=== PATIENT | male | born 1965 | race Caucasian/White ===

== ENCOUNTER 2018-12-15 20:39 | Inpatient (IN) | payer SELFPAY ==
[2018-12-15] MEDS ORDERED: LORazepam 2 MG/ML VIAL ONE (21:08)
[2018-12-15] MEDS ORDERED: NA CHLORIDE 0.9% 2,000 ML ONE (21:08)
--- NOTE | 2018-12-15 21:08 | RAD REPORT ---
EXAM DESCRIPTION: Zoë Single View12/15/2018 8:55 pm CLINICAL HISTORY: sob COMPARISON: 2017 FINDINGS: The lungs appear clear of acute infiltrate. The heart is normal size IMPRESSION: No acute abnormalities displayed
[2018-12-15 21:10] LABS: Absolute Lymphocytes (CBC) 1.9 K/uL (0.7-4.9); Basophils % 0.7 % (0-1.3); Hematocrit 42.5 % (39.6-49.0); Lymphocytes % 37.3 % (15.3-44.8); RBC Red Blood Cell Count 4.31 M/uL (4.33-5.43)
[2018-12-15 21:13] LABS: Protime INR 0.99
[2018-12-15 21:26] LABS: ALT/SGPT 136 U/L (12-78); AST/SGOT 141 U/L (15-37); Albumin 3.8 g/dL (3.4-5.0); Alkaline Phosphatase 99 U/L (45-117); BUN Blood Urea Nitrogen 12 mg/dL (7-18); Bicarbonate 22 mmol/L (21-32); Bilirubin Direct 0.2 mg/dL (0-0.2); Bilirubin Total 0.5 mg/dL (0.2-1.0); Glucose Level 86 mg/dL (74-106); Potassium 3.4 mmol/L (3.5-5.1); Protein, Total 7.7 g/dL (6.4-8.2); Sodium Level 139 mmol/L (136-145)
[2018-12-15] MEDS ORDERED: MAGNESIUM SULFATE 1 gm IVPB 1 GM/100 ML BAG IV ONE (21:31)
[2018-12-15 21:46] LABS: Urine Blood NEGATIVE (NEG); Urine Glucose NEGATIVE (NEG); Urine Protein NEGATIVE (NEG); Urine Specific Gravity <1.005 (1.005-1.030)
[2018-12-15 22:04] LABS: Barbiturates NEGATIVE (NEGATIVE); Benzodiazepines NEGATIVE (NEGATIVE); Cocaine NEGATIVE (NEGATIVE); METHAMPHETAM NEGATIVE (NEGATIVE); Methadone NEGATIVE (NEGATIVE); Opiates NEGATIVE (NEGATIVE); Phencyclidine NEGATIVE (NEGATIVE); THC Cannibis NEGATIVE (NEGATIVE)
[2018-12-15] MEDS ORDERED: POTASSIUM CL SA 10 MEQ TAB PO ONE ×2 (22:16→22:25)
[2018-12-15] MEDS ORDERED: FAMOTIDINE 20 MG/2 ML VIAL IV ONE (22:30)
[2018-12-15] MEDS ORDERED: ONDANSETRON 4 MG/2 ML VIAL ONE (22:30)
[2018-12-15] MEDS ORDERED: CALCIUM GLUCONATE 1 GM IVPB 1 GM/50 ML BAG IV ONE (22:32)
--- NOTE | 2018-12-15 23:22 | ER ---
Nurse's Notes [facility] Name: Vinny Posadas Age: 52 yrs Sex: Male : 1965 Arrival Date: 12/15/2018 Time: 20:44 Bed 6 Private MD: Diagnosis: Suicidal ideations;Anti-depressant overdose;Prolonged QT Presentation: 12/15 20:40 Presenting complaint: EMS states: that they were toned for overdose of Trazodone 50 mg fc (30 tablets), Sertraline 50 mg ( 15 tablets) , and Methocarbamol 750 mg ( 4 tablets). Pt called 911 and they contacted EMS. Pt also told them he had 6 shots prior to taking medication. Pt is awake on and off and complaining of abd pain on and off. Upon entering ER room pt stating that he did not want to be here anymore and could not believe that he was. Transition of care: patient was not received from another setting of care. Onset of symptoms was December 15, 2018 at 19:00. Risk Assessment: Do you want to hurt yourself or someone else? Patient reports desire/thoughts of hurting themselves or someone else. Provider notified. Initial Sepsis Screen: Does the patient meet any 2 criteria? HR > 90 bpm. Yes Does the patient have a suspected source of infection? No. Patient's initial sepsis screen is negative. Care prior to arrival: IV initiated. They had 20 gauge to right forearm that pt pulled out upon entering er room. 20:40 Method Of Arrival: EMS: [facility] 20:40 Acuity: TRAE 2 fc Triage Assessment: 21:18 General: Appears in no apparent distress. Behavior is calm. Pain: Denies pain. EENT: No ak1 signs and/or symptoms were reported regarding the EENT system. Neuro: Level of Consciousness is awake, alert, obeys commands, lethargic, Oriented to person, place, time, situation, Insulation Board Coater Operator are equal bilaterally Moves all extremities. Gait is unsteady, Speech is slurred. Cardiovascular: No deficits noted. Respiratory: No deficits noted. GI: No signs and/or symptoms were reported involving the gastrointestinal system. : Reports inability to void. Derm: No signs and/or symptoms reported regarding the dermatologic system. Musculoskeletal: No signs and/or symptoms reported regarding the musculoskeletal system. Historical: - Allergies: 20:56 No Known Allergies; fc - Home Meds: 20:56 None [Active]; fc - PMHx: 20:56 Depression; Chronic pain; fc - Immunization history:: Last tetanus immunization: unknown. - Social history:: Smoking status: Patient uses tobacco products, unknown amount Patient uses alcohol, unknown amt. - Family history:: not pertinent. - Ebola Screening: : Patient negative for fever greater than or equal to 101.5 degrees Fahrenheit, and additional compatible Ebola Virus Disease symptoms Patient denies exposure to infectious person Patient denies travel to an Ebola-affected area in the 21 days before illness onset. - Hospitalizations: : No recent hospitalization is reported. Screenin:40 Nutritional screening: No deficits noted. Tuberculosis screening: No symptoms or risk fc factors identified. Fall Risk None identified. 21:18 Abuse screen: Denies threats or abuse. Denies injuries from another. ak1 Assessment: 21:11 Reassessment: spoke with Claritza with [facility] who recommend we monitor fc for Serotonin Syndrome, Obtain initial labs, ekg, place on tele monitor, seizure precautions, hypothermia, hypertension. Due to pt being in and out hold Charcoal. Given Mag Sulfate IV 1 gram over an hr for prolonged QTc and then repeat EKG 1 hr after completion of Mag. Dr Diaz notified. 21:50 General: Appears in no apparent distress. comfortable, Behavior is calm, cooperative. ak1 Pain: Denies pain. Neuro: Level of Consciousness is awake, alert, obeys commands, lethargic, Oriented to person, place, Insulation Board Coater Operator are equal bilaterally Moves all extremities. Gait is unsteady, Speech is slurred. Cardiovascular: No deficits noted. Respiratory: No deficits noted. GI: No signs and/or symptoms were reported involving the gastrointestinal system. : No signs and/or symptoms were reported regarding the genitourinary system. EENT: No signs and/or symptoms were reported regarding the EENT system. Derm: No signs and/or symptoms reported regarding the dermatologic system. Musculoskeletal: No signs and/or symptoms reported regarding the musculoskeletal system. 22:25 Reassessment: Patient appears in no apparent distress at this time. No changes from ak1 previously documented assessment. Patient and/or family updated on plan of care and expected duration. Pain level reassessed. Patient is alert, oriented x 3, equal unlabored respirations, skin warm/dry/pink. pt resting with eyes closed, resp even and unlabored. Patient denies pain at this time. Patient states feeling better. 12/16 00:05 Reassessment: Patient appears in no apparent distress at this time. Patient and/or ak1 family updated on plan of care and expected duration. Pain level reassessed. pt resting with eyes closed, resp even and unlabored. Dr. Hansen at bedside to explain to pt admission status. 02:09 Reassessment: poison control recommends and additional 1 gram of mag due to QT interval ak1 not below 450ms. Dr. Hansen contacted with verbal order to administer 1 gram mag. with EKG to follow 1 hour after infusion is complete. Psych: 12/15 20:58 Subjective: Patient's mood is sad, irritable, hopeless, Delusions are denied, fc Hallucinations are denied Having thoughts of suicide. Plan for suicide is overdosing on medication. Objective: Patient is uncooperative, defensive, guarded, irritable, using poor eye contact, restless, suspicious, Speech is slow, Affect is flat, inappropriate. Interventions: Removed personal items and placed in bag. Patient placed in hospital gown. Searched person for dangerous items. Suicide Risk Assessment: Sad Person Scale: Sex of patient: Male: Score 1 point. Age of patient: Score 0 point if patient falls outside of specified age parameters. Depression: Score 1 point if signs of depression are present. Previous Attempt: Score 0 point if patient has not previously attempted suicide. Substance Abuse: Score 0 point if patient does not abuse alcohol or drugs. Rational Thinking: Score 0 point if patient has rational thinking. Social Support: Score 0 if social support is present/available. Organized Plan: Score 1 point if patient had a plan in place. Relationship: Score 1 point if patient is , , , or for a single male Chronic Sickness: Score 0 point if patient does not have a chronic illness, debilitating, or severe disorder. TOTAL POINTS: If total points are 3-4, proposed clinical action is close follow-up/consider hospitalization. Safety Checks: Personal items have been removed. Door is open. No visitors are present at this time. Patient uses 6 shots of liquor, unknown Last use was 1800 hours ago. Vital Signs: 20:40 BP 156 / 126; Pulse 110; Resp 16; Temp 98.0(O); Pulse Ox 97% on R/A; Weight 74.84 kg fc (R); Height 6 ft. 0 in. (182.88 cm) (R); Pain 0/10; 21:18 BP 118 / 82; Pulse 76; Resp 14; Temp 98; Pulse Ox 94% on R/A; ak1 22:27 BP 138 / 88; Pulse 72; Resp 16; Pulse Ox 100% on R/A; ak1 12/16 00:00 BP 94 / 61; Pulse 64; Resp 16; Pulse Ox 96% on R/A; lc1 03:47 BP 107 / 70; Pulse 60; Resp 12; Temp 98; Pulse Ox 96% on R/A; ak1 12/15 20:40 Body Mass Index 22.38 (74.84 kg, 182.88 cm) ED Course: 12/15 20:40 No provider procedures requiring assistance completed. fc 20:40 Arm band placed on Patient placed in an exam room, on a stretcher. fc 20:40 Patient has correct armband on for positive identification. Placed in gown. Bed in low fc position. Call light in reach. Side rails up X2. residential monitor on. Pulse ox on. NIBP on. 20:44 Patient arrived in ED. rn 20:44 Brody iDaz MD is Attending Physician. rn 20:45 Safety Checks: Personal items have been removed. The door is open or patient has been ak1 placed in a hallway bed/chair. There are no family/friend visitors at this time Sitter present at this time. 20:47 Dolores Valencia, RN is Primary Nurse. ak1 20:47 Inserted saline lock: 20 gauge in right forearm, using aseptic technique. Blood ak1 collected. 20:47 EKG done, by ED staff, reviewed by Brody Diaz MD. fc 20:54 Triage completed. fc 20:57 XRAY Chest (1 view) In Process Unspecified. EDMS 21:00 Safety Checks: Personal items have been removed. The door is open or patient has been ak1 placed in a hallway bed/chair. There are no family/friend visitors at this time Sitter present at this time. 21:15 Safety Checks: Personal items have been removed. The door is open or patient has been ak1 placed in a hallway bed/chair. There are no family/friend visitors at this time Sitter present at this time. 21:30 Safety Checks: Personal items have been removed. The door is open or patient has been ak1 placed in a hallway bed/chair. There are no family/friend visitors at this time Sitter present at this time. 21:34 Straight cath inserted, using sterile technique, 16 Fr. Specimen obtained. Patient ak1 tolerated well. 21:45 Safety Checks: Personal items have been removed. The door is open or patient has been ak1 placed in a hallway bed/chair. There are no family/friend visitors at this time Sitter present at this time. 21:50 Lights dimmed. Warm blanket given. ak1 22:00 Safety Checks: Personal items have been removed. The door is open or patient has been lc1 placed in a hallway bed/chair. There are no family/friend visitors at this time Sitter present at this time. 22:15 Safety Checks: Personal items have been removed. The door is open or patient has been lc1 placed in a hallway bed/chair. There are no family/friend visitors at this time Sitter present at this time. 22:30 Safety Checks: Personal items have been removed. The door is open or patient has been lc1 placed in a hallway bed/chair. There are no family/friend visitors at this time Sitter present at this time. 22:45 Safety Checks: Personal items have been removed. The door is open or patient has been lc1 placed in a hallway bed/chair. There are no family/friend visitors at this time Sitter present at this time. 23:00 Safety Checks: Personal items have been removed. The door is open or patient has been lc1 placed in a hallway bed/chair. There are no family/friend visitors at this time Sitter present at this time. 23:13 Assisted to bedside commode. ak1 23:15 Safety Checks: Personal items have been removed. The door is open or patient has been lc1 placed in a hallway bed/chair. There are no family/friend visitors at this time Sitter present at this time. 23:20 Aldair Love DO is Hospitalizing Provider. rn 23:30 Safety Checks: Personal items have been removed. The door is open or patient has been lc1 placed in a hallway bed/chair. There are no family/friend visitors at this time Sitter present at this time. 23:45 Safety Checks: Personal items have been removed. The door is open or patient has been lc1 placed in a hallway bed/chair. There are no family/friend visitors at this time Sitter present at this time. 12/16 00:00 Safety Checks: Personal items have been removed. The door is open or patient has been lc1 placed in a hallway bed/chair. There are no family/friend visitors at this time Sitter present at this time. 00:15 Safety Checks: Personal items have been removed. The door is open or patient has been lc1 placed in a hallway bed/chair. There are no family/friend visitors at this time Sitter present at this time. 00:30 Safety Checks: Personal items have been removed. The door is open or patient has been lc1 placed in a hallway bed/chair. There are no family/friend visitors at this time Sitter present at this time. 00:45 Safety Checks: Personal items have been removed. The door is open or patient has been lc1 placed in a hallway bed/chair. There are no family/friend visitors at this time Sitter present at this time. 01:00 Safety Checks: Personal items have been removed. The door is open or patient has been lc1 placed in a hallway bed/chair. There are no family/friend visitors at this time Sitter present at this time. 04:24 Patient admitted, IV remains in place. ak1 Administered Medications: 12/15 21:00 Drug: NS 0.9% 1000 ml Route: IV; Rate: 1000 ml; Site: right forearm; ak1 22:15 Follow up: IV Status: Completed infusion; IV Intake: 1000ml ak1 21:00 Drug: Ativan 1 mg Route: IVP; Site: right forearm; ak1 21:17 Follow up: Response: No adverse reaction ak1 21:01 Drug: NS 0.9% 1000 ml Route: IV; Rate: 1000 ml; Site: right forearm; ak1 23:25 Follow up: IV Status: Completed infusion; IV Intake: 1000ml ak1 21:17 Drug: Magnesium Sulfate 1 grams Route: IVPB; Infused Over: 1 hrs; Site: right forearm; ak1 22:15 Follow up: IV Status: Completed infusion; IV Intake: 100ml ak1 21:18 Not Given (pt drowsy, verb order from ERP to cancel): Charcoal Suspension 50 grams PO ak1 once 22:10 Not Given (Other Intervention Used): Potassium Chloride 10 mEq IV at 1 calculated rate ak1 once; administer over 1-2 hours 22:11 Drug: Potassium Chloride 20 mEq Route: PO; ak1 22:24 Follow up: Response: No adverse reaction ak1 22:17 Drug: Zofran 4 mg Route: IVP; Site: right forearm; ak1 22:24 Follow up: Response: No adverse reaction ak1 22:17 Drug: Pepcid 20 mg Route: IVP; Site: right forearm; ak1 22:25 Follow up: Response: No adverse reaction ak1 22:24 Drug: Calcium Gluconate 1 grams Route: IVPB; Infused Over: 60 mins; Site: right forearm;ak1 23:25 Follow up: IV Status: Completed infusion; IV Intake: 100ml ak1 12/16 02:12 Follow up: IV Status: Completed infusion; IV Intake: 100ml ak1 02:18 Drug: Magnesium Sulfate 1 grams Route: IVPB; Infused Over: 1 hrs; Site: right forearm; ak1 03:17 Follow up: IV Status: Completed infusion; IV Intake: 100ml ak1 Point of Care Testing: Blood Glucose: 12/15 20:44 Blood Glucose: 78 mg/dL; cc3 Ranges: Intake: 22:15 IV: 1000ml; Total: 1000ml. ak1 22:15 IV: 100ml; Total: 1100ml. ak1 23:25 IV: 100ml; Total: 1200ml. ak1 23:25 IV: 1000ml; Total: 2200ml. ak1 12/16 02:12 IV: 100ml; Total: 2300ml. ak1 03:17 IV: 100ml; Total: 2400ml. ak1 Output: 12/15 23:13 Stool: 1 (Formed Stool) ; Total: 0ml. lc1 23:32 Urine: 750ml (Voided); Total: 750ml. lc1 Outcome: 23:21 Decision to Hospitalize by Provider. rn 12/16 04:24 Admitted to ER Hold. Please see [facility] for further documentation. ak1 04:24 Condition: stable ak1 07:56 Patient left the ED. aa5 Signatures: Dispatcher [employer] EDMS Denise Vasquez RN RN Brody Diaz MD MD rn Calderon, Audri, RN RN aa5 Rina Jhaveri lc1 Dolores Valencia RN RN ak1 Janice Jimenez cc3 Corrections: (The following items were deleted from the chart) 12/15 20:58 20:40 Presenting complaint: EMS states: that they were toned for overdose of Trazodone fc 50 mg (30 tablets), Sertraline 50 mg ( 15 tablets) , and Methocarbamol 750 mg ( 4 tablets). Pt also told them he had 6 shots prior to taking medication. Pt is awake on and off and complaining of abd pain on and off. 22:43 22:30 Safety Checks: Personal items have been removed. The door is open or patient has lc1 been placed in a hallway bed/chair. There are no family/friend visitors at this time Sitter present at this time. lc1
--- NOTE | 2018-12-15 23:22 | EDPHYS ---
Physician Documentation [facility] Name: Vinny Posadas Age: 52 yrs Sex: Male : 1965 Arrival Date: 12/15/2018 Time: 20:44 Bed 6 Private MD: ED Physician Brody Diaz HPI: 12/15 20:46 This 52 yrs old Male presents to ER via Unassigned with complaints of suicide rn attempt, overdose. 20:46 The patient presents to the emergency department with a history of a suicide gesture, rn where the patient took pills/medications, suicide ideation. Onset: The symptoms/episode began/occurred at an unknown time. Associated signs and symptoms: Pertinent positives; palpitations, suicide ideation. Severity of symptoms: At their worst the symptoms were mild in the emergency department the symptoms are unchanged. The patient has experienced similar episodes in the past. Reports took "a handful of pills", approx 1hour or longer prior to arrival, not sure, has been awake entire time, ingestion was to kill himself, states has nothing to live for, he is not sure exactly what or how many pills he took, also drank ETOH, denies illegal drugs, reports feels sleepy, + chronic abd pain and diarrhea. Denies chest pain/sob. . Historical: - Allergies: 20:56 No Known Allergies; fc - Home Meds: 20:56 None [Active]; fc - PMHx: 20:56 Depression; Chronic pain; fc - Immunization history:: Last tetanus immunization: unknown. - Social history:: Smoking status: Patient uses tobacco products, unknown amount Patient uses alcohol, unknown amt. - Family history:: not pertinent. - Ebola Screening: : Patient negative for fever greater than or equal to 101.5 degrees Fahrenheit, and additional compatible Ebola Virus Disease symptoms Patient denies exposure to infectious person Patient denies travel to an Ebola-affected area in the 21 days before illness onset. - Hospitalizations: : No recent hospitalization is reported. ROS: 20:46 Constitutional: Negative for fever, chills, and weight loss, Eyes: Negative for injury, rn pain, redness, and discharge, Neck: Negative for injury, pain, and swelling, Cardiovascular: Negative for chest pain, and edema, Respiratory: Negative for shortness of breath, cough, wheezing, and pleuritic chest pain, Abdomen/GI: Negative for abdominal pain, nausea, vomiting, diarrhea, and constipation, MS/Extremity: Negative for injury and deformity, Skin: Negative for injury, rash, and discoloration, Neuro: Negative for headache, weakness, numbness, tingling, and seizure. Exam: 20:46 Constitutional: Thin male, agitated and sleepy but easily arousable. Tearful, rn yelling. Head/Face: Normocephalic, atraumatic. ENT: MMM Cardiovascular: tachycardic, irregular, no murmur Respiratory: Lungs have equal breath sounds bilaterally, clear to auscultation. Mild tachypnea Abdomen/GI: soft, non-tender Skin: Warm, dry MS/ Extremity: Pulses equal, no cyanosis. Neurovascular intact. Full, normal range of motion. Equal circumference. Neuro: Awake, GCS 15, moves all 4 extremities Psych: + suicidal ideation and attempt Vital Signs: 20:40 BP 156 / 126; Pulse 110; Resp 16; Temp 98.0(O); Pulse Ox 97% on R/A; Weight 74.84 kg fc (R); Height 6 ft. 0 in. (182.88 cm) (R); Pain 0/10; 21:18 BP 118 / 82; Pulse 76; Resp 14; Temp 98; Pulse Ox 94% on R/A; ak1 22:27 BP 138 / 88; Pulse 72; Resp 16; Pulse Ox 100% on R/A; ak1 12/16 00:00 BP 94 / 61; Pulse 64; Resp 16; Pulse Ox 96% on R/A; lc1 03:47 BP 107 / 70; Pulse 60; Resp 12; Temp 98; Pulse Ox 96% on R/A; ak1 12/15 20:40 Body Mass Index 22.38 (74.84 kg, 182.88 cm) MDM: 12/15 20:44 Patient medically screened. rn 21:20 ED course: Pt sleeping comfortably, improvement of vitals with fluids and ativan, rn poison control contacted, do not recommend charcoal, recommend 1g magnesium for prolonged QT, and supportive care. . 23:18 Differential diagnosis: depression, suicidal ideation. Data reviewed: vital signs, rn nurses notes, lab test result(s), EKG, radiologic studies, plain films, and as a result, I will admit patient. Counseling: I had a detailed discussion with the patient and/or guardian regarding: the historical points, exam findings, and any diagnostic results supporting the discharge/admit diagnosis, lab results, radiology results, the need for further work-up and treatment in the hospital. Response to treatment: the patient's symptoms have mildly improved after treatment, and as a result, I will admit patient. Admission orders: after a detailed discussion of the patient's condition and case, the admit orders are written by me. ED course: Pt continues to have prolonged QT, will admit for possible toxic effects of anti-depressant overdose and can transfer to psychiatric facility when is medically clear as inpatient. . 12/15 20:45 Order name: Acetaminophen; Complete Time: :52 12/15 20:45 Order name: Basic Metabolic Panel; Complete Time: :12/15 20:45 Order name: CBC with Diff; Complete Time: :12/15 20:45 Order name: ETOH Level; Complete Time: :12/15 20:45 Order name: Hepatic Function; Complete Time: :12/15 20:45 Order name: PT-INR; Complete Time: :12/15 20:45 Order name: Ptt, Activated; Complete Time: :12/15 20:45 Order name: Salicylate; Complete Time: :12/15 20:45 Order name: Urine Drug Screen; Complete Time: 23:16 12/15 20:45 Order name: XRAY Chest (1 view); Complete Time: 21:12 12/15 21:42 Order name: Urine Dipstick--Ancillary (enter results); Complete Time: :52 12/15 20:45 Order name: EKG; Complete Time: 20:47 12/15 20:45 Order name: EKG - Nurse/Tech; Complete Time: 21:02 12/15 20:45 Order name: IV Saline Lock; Complete Time: 20:49 12/15 20:45 Order name: Labs collected and sent; Complete Time: 20:49 12/15 20:45 Order name: Urine Dipstick-Ancillary (obtain specimen); Complete Time: 21:34 12/15 23:16 Order name: EKG; Complete Time: 23:16 ak1 12/16 00:34 Order name: Social Service Consult EDAK 12/16 04:24 Order name: EKG; Complete Time: 04:26 ak1 12/15 23:16 Order name: EKG - Nurse/Tech; Complete Time: 23:17 ak1 12/16 04:24 Order name: EKG - Nurse/Tech; Complete Time: 04:24 ak1 Administered Medications: 21:00 Drug: NS 0.9% 1000 ml Route: IV; Rate: 1000 ml; Site: right forearm; ak1 22:15 Follow up: IV Status: Completed infusion; IV Intake: 1000ml ak1 21:00 Drug: Ativan 1 mg Route: IVP; Site: right forearm; ak1 21:17 Follow up: Response: No adverse reaction ak1 21:01 Drug: NS 0.9% 1000 ml Route: IV; Rate: 1000 ml; Site: right forearm; ak1 23:25 Follow up: IV Status: Completed infusion; IV Intake: 1000ml ak1 21:17 Drug: Magnesium Sulfate 1 grams Route: IVPB; Infused Over: 1 hrs; Site: right forearm; ak1 22:15 Follow up: IV Status: Completed infusion; IV Intake: 100ml ak1 21:18 Not Given (pt drowsy, verb order from ERP to cancel): Charcoal Suspension 50 grams PO ak1 once 22:10 Not Given (Other Intervention Used): Potassium Chloride 10 mEq IV at 1 calculated rate ak1 once; administer over 1-2 hours 22:11 Drug: Potassium Chloride 20 mEq Route: PO; ak1 22:24 Follow up: Response: No adverse reaction ak1 22:17 Drug: Zofran 4 mg Route: IVP; Site: right forearm; ak1 22:24 Follow up: Response: No adverse reaction ak1 22:17 Drug: Pepcid 20 mg Route: IVP; Site: right forearm; ak1 22:25 Follow up: Response: No adverse reaction ak1 22:24 Drug: Calcium Gluconate 1 grams Route: IVPB; Infused Over: 60 mins; Site: right forearm;ak1 23:25 Follow up: IV Status: Completed infusion; IV Intake: 100ml ak1 12/16 02:12 Follow up: IV Status: Completed infusion; IV Intake: 100ml ak1 02:18 Drug: Magnesium Sulfate 1 grams Route: IVPB; Infused Over: 1 hrs; Site: right forearm; ak1 03:17 Follow up: IV Status: Completed infusion; IV Intake: 100ml ak1 Point of Care Testing: Blood Glucose: 12/15 20:44 Blood Glucose: 78 mg/dL; cc3 Ranges: Critical Glucose Levels:Adult <50 mg/dl or >400 mg/dl <40 mg/dl or >180 mg/dl Disposition: 12/15/18 23:21 Hospitalization ordered by Aldair Love for Inpatient Admission. Preliminary diagnosis are Suicidal ideations, Anti-depressant overdose, Prolonged QT. - Bed requested for Intensive Care Unit. - Status is Inpatient Admission. aa5 - Condition is Stable. - Problem is new. - Symptoms have improved. UTI on Admission? No Signatures: Dispatcher [employer] EDMS Denise Vasquez RN RN Stacie Mike ds1 Brody Diaz MD MD rn Calderon, Audri, RN RN aa5 Dolores Valencia RN RN ak1 Ernie Villasenor PA PA cp Garcia, Cindy, RN RN cg Corrections: (The following items were deleted from the chart) 20:52 20:46 Constitutional: Thin male, agitated and sleepy but easily arousable. rn ralph 12/16 01:34 12/15 23:21 Hospitalization Ordered by Aldair Love DO for Inpatient Admission. cg Preliminary diagnosis is Suicidal ideations; Anti-depressant overdose; Prolonged QT. Bed requested for Telemetry/MedSurg (Inpatient). Status is Inpatient Admission. Condition is Stable. Problem is new. Symptoms have improved. UTI on Admission? No. rn 12/16 01:39 01:34 12/15/2018 23:21 Hospitalization Ordered by Aldair Love DO for Inpatient ds1 Admission. Preliminary diagnosis is Suicidal ideations; Anti-depressant overdose; Prolonged QT. Bed requested for Intensive Care Unit. Status is Inpatient Admission. Condition is Stable. Problem is new. Symptoms have improved. UTI on Admission? No. cg 01:42 01:39 12/15/2018 23:21 Hospitalization Ordered by Aldair Love DO for Inpatient ds1 Admission. Preliminary diagnosis is Suicidal ideations; Anti-depressant overdose; Prolonged QT. Bed requested for [facility] ER HOLD. Status is Inpatient Admission. Condition is Stable. Problem is new. Symptoms have improved. UTI on Admission? No. ds1 07:20 01:42 12/15/2018 23:21 Hospitalization Ordered by Aldair Love DO for Inpatient cp Admission. Preliminary diagnosis is Suicidal ideations; Anti-depressant overdose; Prolonged QT. Bed requested for [facility] ER HOLD. Status is Inpatient Admission. Condition is Stable. Problem is new. Symptoms have improved. UTI on Admission? No. ds1 07:56 07:20 12/15/2018 23:21 Hospitalization Ordered by Aldair Love DO for Inpatient aa5 Admission. Preliminary diagnosis is Suicidal ideations; Anti-depressant overdose; Prolonged QT. Bed requested for Intensive Care Unit. Status is Inpatient Admission. Condition is Stable. Problem is new. Symptoms have improved. UTI on Admission? No. cp
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
[2018-12-16] MEDS ORDERED: LORazepam 2 MG/ML VIAL IV PRN (00:49)
[2018-12-16] MEDS ORDERED: ACETAMINOPHEN 500 MG TAB PO PRN (00:49)
[2018-12-16] MEDS: NA CHLORIDE 0.9% 1,000 ML IV SCH ×4 (00:49→18:05)
[2018-12-16] MEDS ORDERED: ONDANSETRON 4 MG/2 ML VIAL IV PRN (00:49)
[2018-12-16 02:23] VITALS: BMI 22.4
[2018-12-16] MEDS ORDERED: MAGNESIUM SULFATE 1 gm IVPB 1 GM/100 ML BAG IV ONE (02:33)
[2018-12-16] MEDS: FOLIC ACID 1 MG TABLET PO SCH (09:04)
[2018-12-16] MEDS: THIAMINE HCL 100 MG TABLET PO SCH (09:04)
[2018-12-16] MEDS: ENOXAPARIN 40 MG/0.4 ML SQ SCH (09:05)
[2018-12-16 09:12] LABS: Magnesium 2.5 mg/dL (1.8-2.4); Potassium 4.1 mmol/L (3.5-5.1)
--- NOTE | 2018-12-16 10:31 | P.PN ---
Subjective Date of Service: 12/16/18 Primary Care Provider: None Chief Complaint: Suicide attempt Subjective: Improving (Doing well no complaints. Actively suicidal) Review of Systems Unremarkable Physical Examination - Vital Signs Temperature: 97.8 F Blood Pressure: 155/94 Pulse: 63 Respirations: 18 Pulse Ox (%): 96 - Physical Exam General: Alert, Oriented x3 Neck: Supple Respiratory: Clear to auscultation bilaterally Cardiovascular: No edema, Regular rate/rhythm Gastrointestinal: Normal bowel sounds, Soft and benign - Studies Laboratory Data (last 24 hrs) 12/15/18 20:40: PT 11.7, INR 0.99, APTT 29.9 12/15/18 20:40: WBC 5.0, Hgb 14.6, Hct 42.5, Plt Count 172 12/15/18 20:40: Sodium 139, Potassium 3.4 L, BUN 12, Creatinine 0.88, Glucose 86 , Total Bilirubin 0.5, AST 141 H, ALT 136 H, Alkaline Phosphatase 99 Assessment & Plan - Problems (Diagnosis) (1) Tricyclic overdose Current Visit: Yes Status: Acute Plan: Patient is 52 years of age actively suicidal admitted with intentional overdose of tricyclic antidepressants QT interval is prolonged will check is ABGs border and to maintain the pH between 7.45-7.55 bicarbonate infusion may be necessary hemodynamically stable no Regnier as chemistries reviewed patient alcohol level was also elevated Qualifiers: Encounter type: subsequent encounter Injury intent: intentional self-harm Qualified Code(s): T43.012D - Poisoning by tricyclic antidepressants, intentional self-harm, subsequent encounter Discharge Plan: Psychiatry
[2018-12-16 11:00] LABS: Arterial Blood Carboxyhemoglob 2.1 % (0-1.5); Blood Gas Oxyhemoglobin 94.7 % (94-97); Blood O2 Saturation 97.5 % (92-98.5)
[2018-12-17] MEDS: NA CHLORIDE 0.9% 1,000 ML IV SCH (05:30)
--- NOTE | 2018-12-17 06:31 | EKG ---
Test Date: 2018-12-15 Test Time: 23:15:42 Hvac Tech: RAMIREZ MEASUREMENT RESULTS: Intervals: Rate: 66 ND: 162 QRSD: 100 QT: 476 QTc: 499 [place]: P: 69 ND: 162 QRS: 60 T: 68 INTERPRETIVE STATEMENTS: Normal sinus rhythm Prolonged QT Abnormal ECG Compared to ECG 12/15/2018 20:47:33 No significant changes Electronically Signed On 12-17-18 06:29:59 CDT by Ortiz Correa
--- NOTE | 2018-12-17 06:31 | EKG ---
Test Date: 2018-12-16 Test Time: 04:21:13 Technical Communicator: RAMIREZ MEASUREMENT RESULTS: Intervals: Rate: 53 CT: 156 QRSD: 100 QT: 470 QTc: 441 [place]: P: 46 CT: 156 QRS: 44 T: 61 INTERPRETIVE STATEMENTS: Sinus bradycardia Otherwise normal ECG Compared to ECG 12/15/2018 23:15:42 Sinus rhythm no longer present Prolonged QT interval no longer present Electronically Signed On 12-17-18 06:29:35 CDT by Ortiz Correa
[2018-12-17 06:32] LABS: Albumin 3.2 g/dL (3.4-5.0); Bilirubin Total 0.6 mg/dL (0.2-1.0); Magnesium 2.1 mg/dL (1.8-2.4); Potassium 4.3 mmol/L (3.5-5.1); Protein, Total 6.6 g/dL (6.4-8.2); Thyroid Stimulating Hormone 1.04 uIU/mL (0.360-3.740)
--- NOTE | 2018-12-17 06:32 | EKG ---
Test Date: 2018-12-15 Test Time: 20:47:33 Inkjet Operator: RAMIREZ MEASUREMENT RESULTS: Intervals: Rate: 97 WV: 138 QRSD: 102 QT: 464 QTc: 589 [place]: P: 60 WV: 138 QRS: 55 T: 54 INTERPRETIVE STATEMENTS: Normal sinus rhythm Prolonged QT Abnormal ECG Compared to ECG 10/02/2016 01:30:38 Prolonged QT interval now present Sinus arrhythmia no longer present Electronically Signed On 12-17-18 06:31:01 CDT by Ortiz Correa
--- NOTE | 2018-12-17 08:34 | P.PN ---
Subjective Date of Service: 12/17/18 Primary Care Provider: None Chief Complaint: Suicide attempt Subjective: Improving (Patient is doing well wants to go home) Review of Systems Unremarkable Physical Examination - Vital Signs Temperature: 97.2 F Blood Pressure: 129/92 Pulse: 50 Respirations: 15 Pulse Ox (%): 98 - Physical Exam General: Alert, In no apparent distress, Oriented x3 Respiratory: Clear to auscultation bilaterally Cardiovascular: Normal pulses Assessment & Plan - Problems (Diagnosis) (1) Tricyclic overdose Current Visit: Yes Status: Acute Plan: Doing much better his QTC is now down to 410 as per the nursing staff normal arrhythmia semen and hemodynamic instability vital signs stable oxygenation satisfactory will have psychiatry evaluate him regarding stability for discharge or transfer he has an outpatient psychiatric appointment does not appear to be actively suicidal Qualifiers: Encounter type: subsequent encounter Injury intent: intentional self-harm Qualified Code(s): T43.012D - Poisoning by tricyclic antidepressants, intentional self-harm, subsequent encounter
[2018-12-17] MEDS: THIAMINE HCL 100 MG TABLET PO SCH (10:11)
[2018-12-17] MEDS: FOLIC ACID 1 MG TABLET PO SCH (10:12)
[2018-12-17] MEDS: ENOXAPARIN 40 MG/0.4 ML SQ SCH (10:12)
--- NOTE | 2018-12-17 21:14 | EKG ---
Test Date: 2018-12-16 Test Time: 12:56:13 Fruit Shipper: ALEJANDRO MEASUREMENT RESULTS: Intervals: Rate: 53 SC: 150 QRSD: 100 QT: 470 QTc: 441 [place]: P: 62 SC: 150 QRS: 73 T: 71 INTERPRETIVE STATEMENTS: Sinus bradycardia Otherwise normal ECG Compared to ECG 12/16/2018 04:21:13 No significant changes Electronically Signed On 12-17-18 21:13:40 CDT by Ortiz Correa
[2018-12-18] MEDS: THIAMINE HCL 100 MG TABLET PO SCH (08:50)
[2018-12-18] MEDS: FOLIC ACID 1 MG TABLET PO SCH (08:50)
[2018-12-18] MEDS: ENOXAPARIN 40 MG/0.4 ML SQ SCH (08:50)
[2018-12-18 09:23] VITALS: O2SAT 94
--- NOTE | 2018-12-18 16:08 | P.DS ---
Admission Date: 12/16/18 Discharge Date: 12/18/18 Primary Care Provider: None Disposition: ROUTINE DISCHARGE Discharge Condition: GOOD Reason for Admission: Suicide attempt Consultations: [facility] - Problems (1) Tricyclic overdose Current Visit: Yes Status: Resolved Qualifiers: Encounter type: subsequent encounter Injury intent: intentional self-harm Qualified Code(s): T43.012D - Poisoning by tricyclic antidepressants, intentional self-harm, subsequent encounter (2) NAE (acute kidney injury) Current Visit: No Status: Resolved (3) Rhabdomyolysis Current Visit: No Status: Resolved Qualifiers: Rhabdomyolysis type: non-traumatic Qualified Code(s): M62.82 - Rhabdomyolysis Brief History of Present Illness: 52-year-old male presented to the emergency room with a suicide attempt. The patient apparently took handful of medication including Trazodone, Soma, and Sertraline tonight. Patient with severe depression. Patient reports loss of job and poor social situation. Patient has been dealing with depression for some time. Patient did this intentionally. He wanted to kill himself. Patient also did drank alcohol. He apparently took the medication about 1 hr prior to arrival. After he took the medication he called EMS. EMS arrived can send the patient to the ER for further evaluation. In the ER patient was slightly confused with increased somnolence. Patient stabilized. Poison control was called. Patient had prolonged QT interval upon initial evaluation. Poison control recommended no charcoal. They did recommend magnesium and continued IV hydration. Patient has a mental health nursing home warrant in place. Patient admitted for further evaluation and treatment. Lab showed normal white count. Hemoglobin stable. Sodium 139, potassium 3.4. Creatinine 0.8 glucose 86. AST ALT were both elevated at 141 and 136 respectively. Patient had elevated alcohol level of greater than 166. Urinalysis unremarkable. Chest x-ray unremarkable. Urine drug screen otherwise unremarkable. When I saw the patient the ER, patient appeared alert and cooperative. Patient confirmed that he took the medication intentionally to hurt himself. He reported that he took Soma which was a medication that his mother takes. He lives in a small house behind where his mother lives. Hospital Course: Overall during the hospital stay patient remained stable Patient was initially admitted to the hospital for suicidal ideation where patient took a dose of tricyclic antidepressants along with his other medications. When patient presented to the ED poison control was called who recommended the patient be monitor closely in ICU for the next 24-48 hr. Patient did well overall while here in the hospital with did have acute kidney injury however after IV fluids acute kidney injury did improve as well. Patient also had rhabdomyolysis which also resolved after IV fluids. Patient then was evaluated by [facility] who initially did recommend inpatient psych due to the instability patient was educated extensively regarding the need to get help if needed and follow up appointment with MR. Patient demonstrate understanding and thus was discharged home under stable condition however after Re questioning the patient MR recommended the patient could go home and have a followup appointment with [facility] on December 20 as he is not exhibiting any suicidal or homicidal ideation at this time. Vital Signs/Physical Exam: Temp Pulse Resp BP Pulse Ox 98.2 F 57 13 128/83 97 12/18/18 00:00 12/18/18 13:00 12/18/18 13:00 12/18/18 13:00 12/18/18 13:00 Laboratory Data at Discharge: WBC 5.0 K/uL (4.3-10.9) 12/15/18 20:40 Hgb 14.6 g/dL (13.6-17.9) 12/15/18 20:40 Hct 42.5 % (39.6-49.0) 12/15/18 20:40 Plt Count 172 K/uL (152-406) 12/15/18 20:40 PT 11.7 SECONDS (9.5-12.5) 12/15/18 20:40 INR 0.99 12/15/18 20:40 APTT 29.9 SECONDS (24.3-36.9) 12/15/18 20:40 Sodium 140 mmol/L (136-145) 12/17/18 05:34 Potassium 4.3 mmol/L (3.5-5.1) 12/17/18 05:34 BUN 14 mg/dL (7-18) 12/17/18 05:34 Creatinine 1.09 mg/dL (0.55-1.3) 12/17/18 05:34 Glucose 85 mg/dL (74-106) 12/17/18 05:34 Magnesium 2.1 mg/dL (1.8-2.4) 12/17/18 05:34 Total Bilirubin 0.6 mg/dL (0.2-1.0) 12/17/18 05:34 AST 98 U/L (15-37) H 12/17/18 05:34 ALT 112 U/L (12-78) H 12/17/18 05:34 Alkaline Phosphatase 69 U/L (45-117) 12/17/18 05:34 Home Medications: Sertraline [Zoloft*] 50 mg PO BEDTIME 12/16/18 Trazodone [Desyrel*] 50 mg PO BEDTIME 12/16/18 Diet: Regular Activity: Ad gt
[2018-12-18 16:13] VITALS: BP 137/86; TEMP 98.6
[2018-12-19 13:11] LABS: HBsAG Nonreactive (Nonreactive)
--- NOTE | 2018-12-19 13:39 | EKG ---
Test Date: 2018-12-16 Test Time: 08:47:49 Punch Out Crew Member: ALEJANDRO MEASUREMENT RESULTS: Intervals: Rate: 64 [place]: 148 QRSD: 102 QT: 444 QTc: 458 [place]: P: 63 [place]: 148 QRS: 76 T: 71 INTERPRETIVE STATEMENTS: Normal sinus rhythm Normal ECG Compared to ECG 12/16/2018 04:21:13 Sinus bradycardia no longer present Electronically Signed On 12-19-18 13:34:34 CDT by Tushar Martinez
--- NOTE | 2018-12-19 13:39 | EKG ---
Test Date: 2018-12-17 Test Time: 08:15:27 Catering And Events Manager: ELLE, MEASUREMENT RESULTS: Intervals: Rate: 53 [place]: 156 QRSD: 98 QT: 464 QTc: 435 [place]: P: 62 [place]: 156 QRS: 66 T: 77 INTERPRETIVE STATEMENTS: Sinus bradycardia Otherwise normal ECG Compared to ECG 12/16/2018 12:56:13 No significant changes Electronically Signed On 12-19-18 13:34:32 CDT by Tushar Martinez
--- NOTE | 2018-12-19 13:39 | EKG ---
Test Date: 2018-12-16 Test Time: 08:48:24 Broth Setter: ALEJANDRO MEASUREMENT RESULTS: Intervals: Rate: 61 [place]: 150 QRSD: 102 QT: 454 QTc: 457 [place]: P: 67 [place]: 150 QRS: 78 T: 71 INTERPRETIVE STATEMENTS: Normal sinus rhythm Normal ECG Compared to ECG 12/16/2018 08:47:49 No significant changes Electronically Signed On 12-19-18 13:34:33 CDT by Tushar Martinez
[2018-12-19 16:22] LABS: HIV AG/AB 4TH GEN Non-reactive (Non-reactive)
[2018-12-21 14:01] LABS: Hep C Virus RNA (PCR)log 5.97 log IU/mL
== END 2018-12-18 16:40 | disposition home or self-care (01) | DRG 918 ==
LOC: ER 20:39 → ERHOLD 12-16 00:47 → 3RD-ICU 12-16 07:26
PROVIDERS: ADMIT Family Medicine; ATTEND Family Medicine
DX: T43.212A Poisoning by selective serotonin and norepinephrine reuptake inhibitors, intentional self-harm, initial encounter (principal); N17.9 Acute kidney failure, unspecified; M62.82 Rhabdomyolysis; T42.8X2A Poisoning by antiparkinsonism drugs and other central muscle-tone depressants, intentional self-harm, initial encounter; T43.222A Poisoning by selective serotonin reuptake inhibitors, intentional self-harm, initial encounter; Y92.019 Unspecified place in single-family (private) house as the place of occurrence of the external cause; F32.9 Major depressive disorder, single episode, unspecified; I45.81 Long QT syndrome; F10.10 Alcohol abuse, uncomplicated; Y90.6 Blood alcohol level of 120-199 mg/100 ml
CPT/HCPCS: 36415; 51702; 71045; 80048; 80053; 80074; 80076; 80307; 80320; 80329; 81003; 82805; 82962; 83735; 84439; 84443; 85025; 85610; 85730; 87389; 87522; 93005; 96365; 96366; 96367; 96375; 99285; J0610; J1650; J2405; J3475; J7030

== ENCOUNTER 2020-01-16 07:42 | Emergency (ER) | payer SELFPAY ==
[2020-01-16 08:07] LABS: Absolute Lymphocytes (CBC) 3.8 K/uL (0.7-4.9); Basophils % 0.5 % (0-1.3); Hematocrit 45.1 % (39.6-49.0); Lymphocytes % 54.4 % (15.3-44.8); MPV 8.1 fL (7.6-11.3); RBC Red Blood Cell Count 4.63 M/uL (4.33-5.43)
[2020-01-16] MEDS ORDERED: MEPERIDINE HCL 50 MG/ML ONE (08:13)
--- OUTSIDE RECORDS SUMMARY | 2020-01-16 08:21 | XMS REPORT | Continuity of Care Document ---
:1965 Author Organization [facility] t Address [address] [place] [address] Care Team Providers Name Role Phone Unavailable Unavailable Unavailable Payers Payer Name Policy Type Policy Number Effective Date Expiration Date S ource Problems This patient has no known problems. Allergies, Adverse Reactions, Alerts Allergy Allergy Status Severity Reaction(s) Onset Inactive Treating Comm ents Source Name Type Date Date Clinician No Known DA Active U KALEY Allergie 02-13 [facility] s 00:00: d 00 [facility] Medications This patient has no known medications. Procedures This patient has no known procedures. Results This patient has no known results.
[2020-01-16 08:25] LABS: Troponin (Emerg Dept Use Only) 0.03 ng/mL (0.0-0.045)
[2020-01-16] MEDS ORDERED: MORPHINE 4 MG/ML SYR ONE (08:35)
[2020-01-16 08:37] LABS: Blood Morphology Comment NOT SEEN (NOT SEEN); Platelet Estimate ADEQ
[2020-01-16] MEDS ORDERED: HYDROMORPHONE HCL 0.5 MG/0.5 ML INJ ONE (09:08)
[2020-01-16] MEDS ORDERED: NA CHLORIDE 0.9% 500 ML ONE (09:35)
--- NOTE | 2020-01-16 09:35 | RAD REPORT ---
EXAM DESCRIPTION: CT - Angio Aorta For Dissection - 01/16/2020 9:08 am CLINICAL HISTORY: chest pain radiating to neck COMPARISON: Portable chest January 2019 TECHNIQUE: Dynamically enhanced 3 mm thick images of the chest, abdomen, and upper pelvis were obtai afshan during administration of approximately 150mL Isovue 370 IV contrast. Sagittal and coronal reconst ruction images were generated using MIP and reviewed. Exam utilizes a protocol to evaluate entire cou rse of the aorta. All CT scans are performed using dose optimization technique as appropriate and may include automated exposure control or mA/KV adjustment according to patient size. FINDINGS: No aortic aneurysm or dissection. Ascending aorta is maximum 3.7 cm in diameter. With aort ic arch 2.7 cm in diameter. Descending thoracic aorta is 2.5 cm. Very little atherosclerotic calcific ation present. There are no displaced calcifications. Aortic arch is 3 vessel configuration with no o rigins stenosis. Pulmonary arteries are normal as well. No cardiomegaly, pericardial thickening or pericardial effusio n. No mass or infiltrate in the lung parenchyma. No pleural thickening, pleural effusion or pneumothorax . No abnormal mediastinal or hilar mass or lymphadenopathy seen. No chest wall mass or abnormal axillar y lymphadenopathy. Celiac, SMA and renal arteries show no suspicious findings. Solid abdominal viscera and bowel show no significant findings. No mass or abnormal lymphadenopathy. No free air, free fluid or inflammatory stranding. No urinary bladder abnormality. Disc and vertebral body degenerative changes are present. No acute or destructive bone process. IMPRESSION: Mild atherosclerotic change primarily in the infrarenal aorta. No acute or significant a ortic finding. No other significant findings on chest, abdomen and upper pelvis examination.
--- NOTE | 2020-01-16 09:41 | RAD REPORT ---
EXAM DESCRIPTION: CT - Soft Tissue Neck W/Contr - 01/16/2020 9:08 am CLINICAL HISTORY: severe neck and chest pain COMPARISON: No comparisons TECHNIQUE: During dynamic enhancement using 100 milliliters nonionic IV contrast, axial 5 millimeter thick images of the neck were obtained. All CT scans are performed using dose optimization technique as appropriate and may include automated exposure control or mA/KV adjustment according to patient size. FINDINGS: Intracranial portion of the exam is unremarkable. No globe or orbital content abnormality. Mastoid air cells and paranasal sinuses are clear. There significant left deviation of the anterior nasal septum. No pharyngeal mucosal mass or asymmetry. There is no prevertebral soft tissue thickening identifiable . Soft palate, tonsillar tissue, tongue base and epiglottis show no suspicious findings. No vocal cor d abnormality seen. The parotid, submandibular and thyroid gland tissue show no suspicious finding. No lymphadenopathy or mass seen in the soft tissues. Central canal of the cervical spine is inherently limited on CT imaging. No gross evidence for a disc herniation. No acute or destructive cervical spine finding. There is straightening of the usual cerv ical lordosis. There is disc space narrowing at C5-6 and C6-7. Bilateral bony foraminal encroachment changes are present at C5-6 and C6-7. There is borderline to mild central spinal stenosis at the C6-7 disc level. Limited imaging of each lung apex shows small subpleural bulla and bleb formation. IMPRESSION: Advanced for age degenerative change in the cervical spine with borderline to mild centr al spinal stenosis at C6-7 and bilateral bony foraminal encroachment at C5-6 and C6-7. No soft tissue mass or lymphadenopathy. No other significant findings noted.
--- NOTE | 2020-01-16 09:50 | ER ---
Nurse's Notes [facility] Name: Vinny Posadas Age: 54 yrs Sex: Male : 1965 Arrival Date: 01/16/2020 Time: 07:42 Bed 18 Private MD: Diagnosis: Radiculopathy, cervical region Presentation: 01/15 07:54 Chief complaint: Patient states: pt c/o posterior neck pain that radiates down to left jr10 shoulder, pt reports pain that started last night and intensified this morning with chest pain; denies sob, numbness/tingling to extremity. 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 Coronavirus screen: Client denies travel out of the [place] in the last 14 days. At this time, the client does not indicate any symptoms associated with coronavirus-19. Ebola Screen: No symptoms or risks identified at this time. Initial Sepsis Screen: Does the patient meet any 2 criteria? No. Patient's initial sepsis screen is negative. Does the patient have a suspected source of infection? No. Patient's initial sepsis screen is negative. Risk Assessment: Do you want to hurt yourself or someone else? Patient reports no desire to harm self or others. Onset of symptoms was January 16, 2020. 07:54 Method Of Arrival: Ambulatory jr10 07:54 Acuity: TRAE 2 jr10 Historical: - Allergies: 08:22 No Known Allergies; jr10 - PMHx: 08:22 Chronic pain; Depression; jr10 - Immunization history:: Adult Immunizations up to date. - Social history:: Smoking status: unknown. - Family history:: not pertinent. - Hospitalizations: : No recent hospitalization is reported. Screenin:08 Abuse screen: Denies threats or abuse. Denies injuries from another. Nutritional jr10 screening: No deficits noted. Tuberculosis screening: No symptoms or risk factors identified. Fall Risk IV access (20 points). Assessment: 08:05 General: Appears distressed, uncomfortable, Behavior is restless. Pain: Complains of jr10 pain in chest, anterior aspect of left shoulder, posterior aspect of left shoulder, right posterior aspect of neck and left posterior aspect of neck Pain currently is 10 out of 10 on a pain scale. Quality of pain is described as sharp, shooting, stabbing, Pain began gradually, Is continuous, episodic, Alleviated by nothing. Aggravated by repositioning, Noted to be grimacing, guarding, moaning, restless. Neuro: Level of Consciousness is awake, alert, obeys commands, Oriented to Appropriate for age Reports headache Denies weakness blurred vision paresthesias numbness. Cardiovascular: Reports chest pain, Denies shortness of breath. Respiratory: Airway is patent Respiratory effort is even, unlabored, Respiratory pattern is regular, symmetrical. GI: No deficits noted. No signs and/or symptoms were reported involving the gastrointestinal system. : No deficits noted. No signs and/or symptoms were reported regarding the genitourinary system. EENT: No deficits noted. No signs and/or symptoms were reported regarding the EENT system. Derm: No deficits noted. No signs and/or symptoms reported regarding the dermatologic system. Musculoskeletal: No deficits noted. No signs and/or symptoms reported regarding the musculoskeletal system. Injury Description: denies trauma or injury to affected areas/extremity. Vital Signs: 07:54 BP 175 / 108; Pulse 98; Resp 22; Temp 98.0; Pulse Ox 99% ; Weight 72.57 kg; Height 5 jr10 ft. 10 in. (177.80 cm); Pain 10/10; 08:34 BP 164 / 96; Pulse 76; Resp 22; Pulse Ox 100% on R/A; jr10 09:21 BP 144 / 96; Pulse 70; Resp 20; Pulse Ox 100% on R/A; jr10 10:21 BP 156 / 98; Pulse 72; Resp 20; Pulse Ox 100% on R/A; Pain 5/10; jr10 07:54 Body Mass Index 22.96 (72.57 kg, 177.80 cm) 10 ED Course: 07:42 Patient arrived in ED. ag5 07:49 Brody Diaz MD is Attending Physician. rn 07:50 Inserted saline lock: 20 gauge in left antecubital area, using aseptic technique. IV is jr10 patent, is intact, with good blood return, Flushed. 07:54 Rebecca Johnson, KISHA is Primary Nurse. jr10 07:56 Triage completed. jr10 07:56 Arm band placed on. jr10 08:08 Patient has correct armband on for positive identification. Bed in low position. Call [facility] light in reach. Side rails up X2. bus monitor on. Pulse ox on. NIBP on. 08:08 No provider procedures requiring assistance completed. jr10 09:08 CT Aorta for Dissection In Process Unspecified. EDMS 09:08 Soft Tissue Neck W/Contr In Process Unspecified. EDMS 10:22 IV discontinued, intact, bleeding controlled, No redness/swelling at site. Pressure jr10 dressing applied. Administered Medications: 08:03 Drug: Demerol 50 mg Route: IVP; Site: right antecubital; jr10 08:21 Follow up: Response: No adverse reaction; Pain is unchanged, physician notified jr10 08:30 Drug: morphine 4 mg Route: IVP; Site: right antecubital; jr10 09:02 Follow up: Response: No adverse reaction; Pain is unchanged, physician notified jr10 09:02 Drug: Dilaudid 0.5 mg Route: IVP; Site: right antecubital; jr10 09:33 Follow up: Response: No adverse reaction; Pain is decreased jr10 09:33 Drug: NS 0.9% 500 ml Route: IV; Rate: bolus; Site: right antecubital; jr10 10:22 Follow up: Response: No adverse reaction; IV Status: Completed infusion jr10 09:59 Drug: Decadron - Dexamethasone 10 mg Route: IVP; Site: right antecubital; jr10 10:22 Follow up: Response: No adverse reaction; Pain is decreased jr10 Outcome: 09:50 Discharge ordered by . rn 10:22 Discharged to home ambulatory. jr10 10:22 Condition: improved 10:22 Discharge instructions given to patient, Instructed on discharge instructions, follow up and referral plans. Demonstrated understanding of instructions, follow-up care, medications, Prescriptions given X 3. 10:23 Patient left the ED. jr10 Signatures: Dispatcher [employer] EDBrody Pendleton MD MD rn Gaskin, Ajare ag5 Rebecca Johnson RN RN jr10 Corrections: (The following items were deleted from the chart) 08:05 08:03 Demerol 50 mg IVP in left antecubital jr10 jr10
--- NOTE | 2020-01-16 09:50 | EDPHYS ---
Physician Documentation [facility] Name: Vinny Posadas Age: 54 yrs Sex: Male : 1965 Arrival Date: 01/16/2020 Time: 07:42 Bed 18 Private MD: ED Physician Brody Diaz HPI: 01/15 07:54 This 54 yrs old Male presents to ER via Unassigned with complaints of Neck rn Pain, <24hrs Old, Shoulder Pain. 07:54 The patient or guardian complains of pain, that is acute. The symptoms are located rn diffusely. Onset: The symptoms/episode began/occurred this morning. Context: The problem was sustained at home, The neck injury/problem resulted from from unknown cause. The pain radiates to the left arm. Modifying factors: The symptoms are alleviated by nothing. the symptoms are aggravated by movement. Severity of symptoms: At their worst the symptoms were moderate, in the emergency department the symptoms are unchanged. The patient has experienced similar episodes in the past, but today's symptoms are worse. The patient has not recently seen a physician. Reports neck pain, began this morning, took tylenol and able to go back to sleep, woke up with worsening pain, radiates to left arm, also assoc with chest pain, no trauma. Reports tingling to left arm in past. No abd pain. No weakness/numbness/tingling. No headache.. Historical: - Allergies: 08:22 No Known Allergies; jr10 - PMHx: 08:22 Chronic pain; Depression; jr10 - Immunization history:: Adult Immunizations up to date. - Social history:: Smoking status: unknown. - Family history:: not pertinent. - Hospitalizations: : No recent hospitalization is reported. ROS: 07:54 Constitutional: Negative for fever, chills, and weight loss, Eyes: Negative for injury, rn pain, redness, and discharge, ENT: Negative for injury, pain, and discharge, Neck: + neck pain Cardiovascular: Negative for palpitations, and edema, Respiratory: Negative for shortness of breath, cough, wheezing, and pleuritic chest pain, Abdomen/GI: Negative for abdominal pain, nausea, vomiting, diarrhea, and constipation, MS/Extremity: Negative for injury and deformity, Skin: Negative for injury, rash, and discoloration, Neuro: Negative for headache, weakness, numbness, tingling, and seizure. Exam: 07:54 Constitutional: This is a well developed, well nourished patient who is awake, alert, rn appears uncomfortable. Head/Face: Normocephalic, atraumatic. Eyes: Pupils equal round and reactive to light, extra-ocular motions intact. Lids and lashes normal. Conjunctiva and sclera are non-icteric and not injected. Cornea within normal limits. Periorbital areas with no swelling, redness, or edema. Neck: Trachea midline, no masses palpated, and no cervical lymphadenopathy. No vertebral point tenderness. Carotid pulses equal. Cardiovascular: Regular rate and rhythm. No pulse deficits. Respiratory: Mild tachypnea, speaking full sentences, seems secondary to pain Abdomen/GI: soft, non-tender MS/ Extremity: Pulses equal, no cyanosis. Neurovascular intact. Full, normal range of motion. Equal circumference. Neuro: Awake and alert, GCS 15, oriented to person, place, time, and situation. Cranial nerves II-XII grossly intact. Motor strength 5/5 in all extremities. Sensory grossly intact. Cerebellar exam normal. Normal gait. 08:26 ECG was reviewed by the Attending Physician. rn Vital Signs: 07:54 BP 175 / 108; Pulse 98; Resp 22; Temp 98.0; Pulse Ox 99% ; Weight 72.57 kg; Height 5 jr10 ft. 10 in. (177.80 cm); Pain 10/10; 08:34 BP 164 / 96; Pulse 76; Resp 22; Pulse Ox 100% on R/A; jr10 09:21 BP 144 / 96; Pulse 70; Resp 20; Pulse Ox 100% on R/A; jr10 10:21 BP 156 / 98; Pulse 72; Resp 20; Pulse Ox 100% on R/A; Pain 5/10; jr10 07:54 Body Mass Index 22.96 (72.57 kg, 177.80 cm) jr10 MDM: 07:49 Patient medically screened. rn 08:21 ED course: Told by radiology not able to perform both a aortic dissection scan and rn carotid study, will instead get CT aorta and soft tissue neck with contrast. . 09:48 Differential diagnosis: arthritis, C-Spine Fracture Cervical Disc Herniation Cervical rn Discogenic Pain Cervical Facet Syndrome Cervical Raiculopathy Cervical Spondylosis cervical strain, Spinal Cord Compression Spondylosis subluxation, torticollis. Data reviewed: vital signs, nurses notes, lab test result(s), EKG, radiologic studies, CT scan, and as a result, I will discharge patient. 09:49 Counseling: I had a detailed discussion with the patient and/or guardian regarding: the rn historical points, exam findings, and any diagnostic results supporting the discharge/admit diagnosis, lab results, radiology results, the need for outpatient follow up, to return to the emergency department if symptoms worsen or persist or if there are any questions or concerns that arise at home. Response to treatment: the patient's symptoms have mildly improved after treatment, and as a result, I will discharge patient. Special discussion: I discussed with the patient/guardian in detail that at this point there is no indication for admission to the hospital. It is understood, however, that if the symptoms persist or worsen the patient needs to return immediately for re-evaluation. ED course: NO acute findings on ct aorta or neck, will dc home as neck pain with radiculopathy, outpt MRI recommended. . 01/15 07:54 Order name: CBC with Diff; Complete Time: 08:39 rn 01/15 07:54 Order name: Basic Metabolic Panel; Complete Time: 08:39 rn 01/15 07:54 Order name: Troponin (emerg Dept Use Only); Complete Time: 08:39 rn 01/15 07:54 Order name: CT Aorta for Dissection; Complete Time: 09:44 rn 01/15 08:09 Order name: Manual Differential; Complete Time: 08:39 EDMS 01/15 07:54 Order name: IV Start; Complete Time: 08:03 rn 01/15 07:54 Order name: EKG; Complete Time: 07:55 rn 01/15 08:07 Order name: Soft Tissue Neck W/Contr; Complete Time: 09:44 EDMS 01/15 07:54 Order name: EKG - Nurse/Tech; Complete Time: 08:21 rn EC:26 Rate is 81 beats/min. Rhythm is regular. QRS Arrey is Normal. CO interval is normal. QRS rn interval is normal. QT interval is normal. No Q waves. T waves are Normal. No ST changes noted. Clinical impression: NSR w/ Non-specific ST/T Changes. Interpreted by me. Reviewed by me. Administered Medications: 08:03 Drug: Demerol 50 mg Route: IVP; Site: right antecubital; jr10 08:21 Follow up: Response: No adverse reaction; Pain is unchanged, physician notified jr10 08:30 Drug: morphine 4 mg Route: IVP; Site: right antecubital; jr10 09:02 Follow up: Response: No adverse reaction; Pain is unchanged, physician notified jr10 09:02 Drug: Dilaudid 0.5 mg Route: IVP; Site: right antecubital; jr10 09:33 Follow up: Response: No adverse reaction; Pain is decreased jr10 09:33 Drug: NS 0.9% 500 ml Route: IV; Rate: bolus; Site: right antecubital; jr10 10:22 Follow up: Response: No adverse reaction; IV Status: Completed infusion jr10 09:59 Drug: Decadron - Dexamethasone 10 mg Route: IVP; Site: right antecubital; jr10 10:22 Follow up: Response: No adverse reaction; Pain is decreased jr10 Disposition: 01/16/20 09:50 Discharged to Home. Impression: Radiculopathy, cervical region. - Condition is Stable. - Discharge Instructions: Cervical Radiculopathy. - Prescriptions for Cyclobenzaprine 10 mg Oral Tablet - take 1 tablet by ORAL route every 8 hours As needed; 15 tablet. Tramadol 50 mg Oral Tablet - take 1 tablet by ORAL route every 8 hours as needed; 12 tablet. Medrol (Chip) 4 mg Oral Tablets, Dose Pack - take 1 tablet by ORAL route as directed - follow package instructions; 1 packet. - Medication Reconciliation Form, Thank You Letter, Antibiotic Education, Prescription Opioid Use form. - Follow up: Private Physician; When: As needed; Reason: Recheck today's complaints, Re-evaluation by your physician. - Problem is new. - Symptoms have improved. Signatures: Dispatcher [employer] EDNJ Brody Diaz MD MD rn Rivera, Jessica, RN RN jr10 Corrections: (The following items were deleted from the chart) 08:07 07:55 Neck Angio+CT.RAD.BRZ ordered. [facility] EDMS 10:23 09:50 01/16/2020 09:50 Discharged to Home. Impression: Radiculopathy, cervical region. jr10 Condition is Stable. Forms are Medication Reconciliation Form, Thank You Letter, Antibiotic Education, Prescription Opioid Use. Follow up: Private Physician; When: As needed; Reason: Recheck today's complaints, Re-evaluation by your physician. Problem is new. Symptoms have improved. rn
[2020-01-16] MEDS ORDERED: dexAMETHasone 10 MG/ML VIAL ONE (10:07)
[2020-01-21 09:23] VITALS: TEMP 98
[2020-01-21 09:24] VITALS: O2SAT 100
[2020-01-21 09:26] VITALS: BP 156/98
== END 2020-01-16 10:23 | disposition home or self-care (01) ==
LOC: ER 07:42
DX: M54.12 Radiculopathy, cervical region (principal)
CPT/HCPCS: 36415; 70491; 71275; 74175; 80048; 84484; 85025; 93005; 96361; 96374; 96375; 99284; J1100; J1170; J2175; J7040; Q9967

== ENCOUNTER 2022-04-27 02:25 | Emergency (ER) | payer SELFPAY ==
--- OUTSIDE RECORDS SUMMARY | 2022-04-27 02:29 | XMS REPORT | Continuity of Care Document ---
:1965 Author Organization [facility] t Address [address] [place] [address] Care Team Providers Name Role Phone Alysha Karimi Primary Care Physician STACY HOANG Attending Clinician Unavailable STACY HOANG Attending Clinician Unavailable Stacy Hoang MD Attending Clinician Doctor Unassigned, [employer] Attending Clinician Unavailable Jet Renee Attending Clinician Reggie Rowell MD Attending Clinician REGGIE ROWELL Attending Clinician Unavailable ALYSHA CORREIA Attending Clinician Unavailable JET FRANKS Attending Clinician Unavailable Alysha Karimi Attending Clinician Arlet Donald Attending Clinician Usman Mancilla Attending Clinician Unavailable Payers Payer Name Policy Type Policy Number Effective Date Expiration Date S rosaline [employer] [id number] 2017 CARE 00:00:00 [employer] [id number] 2020 00:00:00 Problems Condition Condition Condition Status Onset Resolution Last Treating Co mments Source Name Details Category Date Date Treatment Clinician Date Pain Pain Disease Active Univers radiating radiating 11-13 ity of to neck to neck 00:00: [address] Chronic Chronic Disease Active Univers tension-ty tension-ty 24 it y of pe pe 00:00: [place] headache, headache, 00 [place] intractabl intractabl Br anch e e Weakness Weakness Disease Active Unive rs of left of left 11-13 ity of arm arm 00:00: [address] Allergies, Adverse Reactions, Alerts Allergy Allergy Status Severity Reaction(s) Onset Inactive Treating Comm ents Source Name Type Date Date Clinician No Known DA Active U [facility]ie 02[facility]13 [facility] NO KNOWN Drug Active Univers ALLERGIE Class ity of S [facility] Social History Social Habit Start Date Stop Date Quantity Comments Source History SDOH University o f Alcohol Frequency [place] [facility] History SDOH University o f Alcohol Std [place] Medical Drinks Branch History SDOH University o f Alcohol Binge [place] Medic al Branch Exposure to Not sure University of SARS-CoV-2 [facility] (event) [place] Alcohol intake 2021-02-26 2021-02-26 Current drinker Unive rsity of 00:00:00 00:00:00 of alcohol [facility] (finding) [place] Alcohol Comment 2020-11-13 2020-11-13 1-2 beer a wk Univer sity of 00:00:00 00:00:00 [facility] Tobacco use and 2017-03-17 2017-03-17 Never used Universit y of exposure 00:00:00 00:00:00 [facility] History of 2008-03-17 Smoker University of tobacco use 00:00:00 [facility] Sex Assigned [birth year] Universit y of 00:00:00 00:00:00 [facility] Smoking Status Start Date Stop Date Source Former smoker 2017-03-17 00:00:00 2017-03-17 00:00:00 Universi ty of [facility] Medications Ordered Filled Start Stop Current Ordering Indication Dosage Frequency Signature Comments Components Source Medication Medication Date Date Medication? Clinician (SIG) Name Name cyclobenzap Yes [id number] 5mg Take 1 Univers rine 5 mg 7-13 tablet by ity o f tablet 00:00: mouth 3 [place] 00 (three) Medical times Branch daily as needed for Muscle Spasms. naproxen Yes [id number] 500mg Take 1 U nivers (NAPROSYN) 7-13 tablet by ity of 500 mg 00:00: mouth 2 [place] tablet 00 (two) Medical times Branch daily with meals. cyclobenzap Yes [id number] 5mg Take 1 Univers rine 5 mg 7-13 tablet by ity o f tablet 00:00: mouth 3 [place] 00 (three) Medical times Branch daily as needed for Muscle Spasms. naproxen Yes [id number] 500mg Take 1 U nivers (NAPROSYN) 7-13 tablet by ity of 500 mg 00:00: mouth 2 [place] tablet 00 (two) Medical times Branch daily with meals. ondansetron Yes [id number] 4mg Take 1 Univers (ZOFRAN 6-28 tablet by ity of ODT) 4 mg 00:00: mouth [place] disintegrat 00 every 8 Medic al ing tablet (eight) Branch hours as needed for Nausea and Vomiting (N/V). ondansetron Yes [id number] 4mg Take 1 Univers (ZOFRAN 6-28 tablet by ity of ODT) 4 mg 00:00: mouth [place] disintegrat 00 every 8 Medic al ing tablet (eight) Branch hours as needed for Nausea and Vomiting (N/V). baclofen 10 Yes [id number] 10mg Take 1 Univers mg tablet 6-24 tablet by ity o f 00:00: mouth 3 (three) Medical times Branch daily as needed for Pain (scale 7-10). baclofen 10 0 Yes [id number] 10mg Take 1 Univers mg tablet 6-24 tablet by ity o f 00:00: mouth 3 [place] (three) Medical times Branch daily as needed for Pain (scale 7-10). prazosin 1 Yes TAKE 1 Unive rs mg capsule 5-31 CAPSULE BY ity of 00:00: MOUTH [place] 00 THREE Medical TIMES Branch DAILY NEEDED prazosin 1 Yes TAKE 1 Unive rs mg capsule 5-31 CAPSULE BY ity of 00:00: MOUTH [place] 00 THREE Medical TIMES Branch DAILY NEEDED citalopram Yes [id number] 20mg Take 1 U nivers (CELEXA) 20 2-26 tablet by ity of mg tablet 00:00: mouth [place] 00 daily. Medical Branch citalopram Yes [id number] 20mg Take 1 U nivers (CELEXA) 20 2-26 tablet by ity of mg tablet 00:00: mouth 00 daily. Medical Branch Vital Signs Vital Name Observation Time Observation Value Comments Source Systolic blood 2021-02-26 19:17:00 131 mm[Hg[facility] Di[facility] blood 2021-02-26 19:17:00 92 mm[facility]Hg[facility] 2021-02-26 19:17:00 77 /min [facility] Body height 2021-02-26 19:17:00 177.8 cm [facility] Body weight 2021-02-26 19:17:00 73.936 kg [facility] BMI 2021-02-26 19:17:00 23.39 kg/m2 [facility] Oxygen saturation 2021-02-26 19:17:00 100 /min [facility] in Arterial blood [facility] anch by Pulse oximetry Procedures Procedure Date / Time Performed Performing Clinician [facility] e PATIENT QUESTIONNAIRE 2021-02-26 05:01:00 Doctor Unassigned, No [facility] Branch Encounters Start End Encounter Admission Attending Care Care Encounter Source Date/Time Date/Time Type Type Clinicians Facility Department ID 2021-03-[address] [facility] [id number] Univers 04:15:53 [facility] 2021-03-13 2021-03-13 Outpatient R STACY HOANG [facility] [id number] Univers 09:30:00 09:30:00 STACY HOANG [facility] 2021-03-10 2021-03-10 Outpatient R [facility] [id number] Univers 16:30:00 16:30:00 [facility] 2021-02-26 2021-02-26 Office RAMIRO Hoang [id number] Univers 12:33:08 15:00:35 Visit Stacy MULTISPEC [id number] ity of [id number] [phone] [facility] AND JASPER 011 Branch [facility] 2021-02-26 2021-02-26 Outpatient STACY HALL [facility] [id number] Univers 14:00:00 14:00:00 STACY HOANG [facility] 2021-02-26 2021-02-26 Orders Doctor SANDI [id number] [id number] Univers 00:00:00 00:00:00 Only Unassigned, AVINASH [id number] ity of [employer] [facility] [id number] [place] as [phone] [facility] 009 Branch 2021-02-09 2021-02-09 Outpatient STACY HALL [facility] [id number] Univers 13:30:00 13:30:00 STACY HOANG [facility] 2021-02-04 2021-02-04 Outpatient STACY HALL [facility] [id number] Univers 10:00:00 10:00:00 STACY HOANG [facility] 2021-01-28 2021-01-28 Telephone [facility] [id number] Univers 00:00:00 00:00:00 Jet SPECIALTY [id number] it[id number] [phone] [place] kim LOPEZY 198 [facility] 2021-01-19 2021-01-[address] [facility] [id number] Univers 00:00:00 00:00:00 Regige Valdez [id number] ity of [id number] [phone] [place] kim cotter 059 [facility] 2021-01-19 2021-01-[address] [facility] [id number] Univers 00:00:00 00:00:00 Reggie Valdez [id number] it[id number] [phone] [place] dical nal 059 [facility] 2021-01-13 2021-01-13 [facility] [id number] Univers 10:31:14 23:59:00 Encounter Reggie Courtney [id number] it[id number] [phone] [place] dical nal 843 [facility] 2021-01-13 2021-01-13 Outpatient R [facility] [id number] Univers 11:00:00 11:00:00 REGGIE kari o f [facility] 2021-01-05 2021-01-05 Outpatient R [facility] [id number] Univers 11:00:00 11:00:00 REGGIE pierce o f [facility] 2020-12-30 2020-12-30 Orders Doctor SANDI 1.2.840.114 [id number] Univers 00:00:00 00:00:00 Only Unassigned, AVINASH [id number] ity of [employer] [facility]OSPITAL [id number] [place] as [phone] [address] 2020-12-24 2020-12-24 Office [facility] [id number] Univers 09:11:05 09:49:18 Visit Reggie Valdez [id number] it[id number] [phone] [place] dical nal 059 [facility] 2020-12-24 2020-12-24 Outpatient R [facility] [id number] Univers 09:20:00 09:20:00 EDUARDAGENE kari o [facility] 2020-12-19 2020-12-19 Orders Doctor SANDI 1.2.840.114 [id number] Univers 00:00:00 00:00:00 Only Unassigned, AVINASH [id number] ity of [employer] [facility]OSPITAL [id number] [place] as [phone] [address] 2020-12-04 2020-12-04 Outpatient R ALYSHA CORREIA [facility] [id number] Univers 08:30:00 08:30:00 ity of [facility] 2020-12-02 2020-12-02 Office Golden [facility] 1.2.840.114 [id number] Univers 13:27:01 14:52:58 Visit Jet SPECIALTY [id number] ity of [facility] [id number] [facility] AT [phone] [place] kim BARBER 198 [facility] 2020-12-02 2020-12-02 Outpatient R GOLDEN [facility] [id number] Univers 14:20:00 14:20:00 JET ity of [facility] 2020-11-25 2020-11-25 Hospital Alysha Correia [facility] [id number] Univers 08:00:00 23:59:00 Encounter Courtney [id number] ity [facility] [id number] [facility] [phone] [facility] 804 [place] 2020-11-25 2020-11-25 Outpatient R ALYSHA CORREIA [facility] [id number] Univers 00:00:00 00:00:00 ity of [facility] 2020-11-25 2020-11-25 Orders Doctor SANDI 1.2.840.114 [id number] Univers 00:00:00 00:00:00 Only Unassigned, AVINASH [id number] ity of [employer] HOSPITAL [id number] [place] as [phone] [facility] 009 [place] 2020-11-20 2020-11-20 Telephone Alysha Correia [id number] Univers 00:00:00 00:00:00 [facility] [id number] it y of HEALTH [id number] [facility] UNIT [phone] [facility] 362 [place] 2020-11-17 2020-11-17 Emergency Arlet Florentino [facility] 1.2.840.114 [id number] Univers 10:11:00 11:10:00 Jennifer Valdez [id number] i ty [id number] [id number] [facility] 084 Branch 2020-11-17 2020-11-17 Telephone Alysha CorreiaLILIAN 1.2.840.114 [id number] Univers 00:00:00 00:00:00 [facility] [id number] [id number] [phone] [address] 2020-11-17 2020-11-17 Orders Doctor SANDI 1.2.840.114 [id number] Univers 00:00:00 00:00:00 Only Unassigned, AVINASH [id number] ity of [employer] HOSPITAL 4.2.7.2.686 [place] as [phone] [facility] 009 [place] 2020-11-17 2020-11-17 Telephone Alysha CorreiaLILIAN 1.2.840.114 [id number] Univers 00:00:00 00:00:00 [facility] [id number] [id number] [id number] [address] 2020-11-13 2020-11-14 Office Care, Usman Primary WILLIAM 1.2.840 .114 [id number] Univers 13:34:42 10:48:26 Visit Alysha Correia [facility] [id number] it[place] of [id number] [id number] [address] 2020-11-13 2020-11-13 Outpatient R ALYSHA CORREIA [facility] [id number] Univers 13:30:00 13:30:00 ity of [facility] 2020-11-13 2020-11-13 Orders Doctor SANDI 1.2.840.114 [id number] Univers 00:00:00 00:00:00 Only Unassigned, AVINASH 350.1.13.10 ity of [employer] HOSPITAL 4.2.7.2.686 [place] as [phone] [address] Results This patient has no known results.
[2022-04-27] MEDS ORDERED: NA CHLORIDE 0.9% 100 ML IV ONE (04:53)
[2022-04-27] MEDS ORDERED: CEFAZOLIN SODIUM 1 GM/VIAL ONE (04:53)
[2022-04-27 05:16] LABS: SARS-CoV-2 Antigen Rapid Res Negative (Negative)
--- NOTE | 2022-04-27 05:33 | ER ---
Nurse's Notes [facility] Name: Vinny Posadas Age: 56 yrs Sex: Male : 1965 Arrival Date: 04/27/2022 Time: 02:28 Bed 4 Private MD: Diagnosis: Open fracture of distal phalanx of left first digit Presentation: 04/27 02:55 Chief complaint: Patient states: I cut my thumb with table saw. Coronavirus screen: kd3 Vaccine status:. Ebola Screen: No symptoms or risks identified at this time. Complicating Factors: There are no complicating factors for this patient. Initial Sepsis Screen: Does the patient meet any 2 criteria? No. Patient's initial sepsis screen is negative. Does the patient have a suspected source of infection? No. Patient's initial sepsis screen is negative. Risk Assessment: Do you want to hurt yourself or someone else? Patient reports no desire to harm self or others. Onset of symptoms was April 27, 2022. 02:55 Method Of Arrival: Ambulatory kd3 02:55 Acuity: TRAE 3 kd3 Triage Assessment: 02:56 General: Appears uncomfortable, Behavior is cooperative. Pain: Complains of pain in kd3 dorsal aspect of distal phalanx of left thumb and left thumbnail. Neuro: Level of Consciousness is awake, alert, obeys commands, Oriented to person, place, time, situation. Respiratory: Airway is patent Trachea midline Respiratory effort is even, unlabored, Respiratory pattern is regular, symmetrical. Injury Description: Laceration sustained to dorsal aspect of distal phalanx of left thumb and left thumbnail. Historical: - PMHx: 02:56 Chronic pain; Depression; kd3 - Immunization history:: Adult Immunizations up to date. - Social history:: Smoking status: unknown. - Family history:: not pertinent. Screenin:57 Abuse screen: Denies threats or abuse. Denies injuries from another. Nutritional kd3 screening: No deficits noted. Tuberculosis screening: No symptoms or risk factors identified. Fall Risk None identified. Assessment: 02:50 General: Appears uncomfortable. Pain: Complains of pain in left thumbnail Pain does not ha1 radiate. Pain currently is 10 out of 10 on a pain scale. Quality of pain is described as burning, sharp, Pain began suddenly. Neuro: Level of Consciousness is awake, alert, obeys commands, Oriented to person, place, time, situation. Cardiovascular: Capillary refill < 3 seconds Patient's skin is warm and dry. Respiratory: Airway is patent Respiratory effort is even, unlabored, Respiratory pattern is regular, symmetrical. GI: No signs and/or symptoms were reported involving the gastrointestinal system. : No signs and/or symptoms were reported regarding the genitourinary system. Musculoskeletal: Circulation, motion, and sensation intact. Range of motion: intact in all extremities. Injury Description: Laceration sustained to left thumbnail is 0.5 to 2.5 cm long, bleeding moderately. 03:50 Reassessment: Patient and/or family updated on plan of care and expected duration. Pain ha1 level reassessed. Patient is alert, oriented x 3, equal unlabored respirations, skin warm/dry/pink. wound has been clean as ordered by in shift. wound clean and dry. 04:50 Reassessment: Patient and/or family updated on plan of care and expected duration. Pain ha1 level reassessed. Patient is alert, oriented x 3, equal unlabored respirations, skin warm/dry/pink. at bedside. explaining the need for transfer. 06:13 Reassessment: Patient and/or family updated on plan of care and expected duration. Pain ha1 level reassessed. Patient is alert, oriented x 3, equal unlabored respirations, skin warm/dry/pink. pt. denied transfer. 06:21 General: pt refusing transfer. pt educated on reason for transfer. pt verbalized as6 understanding of risks of leaving. pt told to return to ER for any reason. Vital Signs: 02:50 BP 111 / 63; Pulse 102; Resp 17 S; Pulse Ox 100% on R/A; ha1 02:55 BP 111 / 63; Pulse 102; Resp 17; Pulse Ox 100% on R/A; Weight 72.57 kg; Height 5 ft. 10 kd3 in. (177.80 cm); 03:50 BP 137 / 67; Pulse 90; Resp 17 S; Pulse Ox 100% on R/A; ha1 05:07 Temp 97.9(O); bb 05:20 BP 160 / 92; Pulse 66; Resp 18 S; Temp 97.8(O); Pulse Ox 99% on R/A; as6 06:12 BP 160 / 92; Pulse 65; Resp 18 S; Pulse Ox 100% on R/A; as6 02:55 Body Mass Index 22.96 (72.57 kg, 177.80 cm) kd3 ED Course: 02:28 Patient arrived in ED. bp1 02:34 Derek Clemens MD is Attending Physician. rt 02:56 Triage completed. kd3 02:56 Arm band placed on right wrist. kd3 02:57 Patient has correct armband on for positive identification. Call light in reach. kd3 03:09 Roman Moreno, KISHA is Primary Nurse. as6 03:52 XRAY Hand LEFT 3 View In Process Unspecified. EDMS 04:28 initiated a transfer with Jeannette Lucas from [facility] [place]. mw2 04:46 initiated a transfer with Georgiana from [facility]. mw2 04:59 [facility] denied due to capacity. mw2 05:[address] Clemens with the Doctor from [facility]. mw2 05:20 Inserted saline lock: 18 gauge in right antecubital area, using aseptic technique. as6 05:25 administrative approval given by Georgiana Freitas/ patient has been accepted to [address] to the ER/ Dr. Fry accepted the patient in transfer/report to be called to [phone]. 05:30 [place] ETA 1 hour. mw2 06:12 No provider procedures requiring assistance completed. as6 06:21 IV discontinued, intact, bleeding controlled, No redness/swelling at site. Pressure as6 dressing applied. Administered Medications: 03:09 Drug: Bupivacaine (0.5 %) 30 ml {Note: administered by provider .} Volume: 10 ml; as6 Route: Infiltration; 06:13 Follow up: Response: No adverse reaction as6 05:20 Drug: Ancef (cefazolin) 2 grams Route: IVPB; Infused Over: 30 mins; Site: right as6 antecubital; 06:13 Follow up: Response: No adverse reaction; IV Status: Completed infusion; IV Intake: as6 100ml Medication: 06:12 VIS not applicable for this client. as6 Intake: 06:13 IV: 100ml; Total: 100ml. as6 Outcome: 05:33 ER care complete, transfer ordered by . rt 06:12 Discharge ordered by . rt 06:12 Condition: stable as6 06:21 Discharged to home ambulatory. as6 06:21 Discharge instructions given to patient, Instructed on discharge instructions, follow up and referral plans. medication usage, Demonstrated understanding of instructions, follow-up care, medications, Prescriptions given X 1. 06:22 Patient left the ED. as6 Signatures: Dispatcher [employer] EDMS Rose Wilkerson RN RN Sergio Desai 2 Citlaly Billingsley Ashby, RN RN as6 Cara Gale RN RN kd3 Savita Tony RN RN ha1 Derek Clemens MD MD rt
--- NOTE | 2022-04-27 05:33 | EDPHYS ---
Physician Documentation [facility] Name: Vinny Posadas Age: 56 yrs Sex: Male : 1965 Arrival Date: 04/27/2022 Time: 02:28 Bed 4 Private MD: ED Physician Derek Clemens HPI: 04/27 05:22 This 56 yrs old Male presents to ER via Ambulatory with complaints of Laceration, Thumb.rt 05:22 The patient or guardian reports injury. The complaints affect the left hand and dorsal rt aspect of distal phalanx of left thumb. Onset: The symptoms/episode began/occurred acutely, just prior to arrival. Patient presents to the ED after injury to the left thumb with a power saw. The patient states that the wood kicked, hit the distal aspect of his finger. Reports bleeding that is currently well controlled. Pain is aching nature, nonradiating, no other aggravating or alleviating factors.. Historical: - PMHx: 02:56 Chronic pain; Depression; kd3 - Immunization history:: Adult Immunizations up to date. - Social history:: Smoking status: unknown. - Family history:: not pertinent. ROS: 05:22 Constitutional: Negative for fever, chills, and weight loss, Eyes: Negative for injury, rt pain, redness, and discharge, ENT: Negative for injury, pain, and discharge, Neck: Negative for injury, pain, and swelling, Cardiovascular: Negative for chest pain, palpitations, and edema, Respiratory: Negative for shortness of breath, cough, wheezing, and pleuritic chest pain, Abdomen/GI: Negative for abdominal pain, nausea, vomiting, diarrhea, and constipation, Back: Negative for injury and pain, Skin: Negative for injury, rash, and discoloration, Neuro: Negative for headache, weakness, numbness, tingling, and seizure, Psych: Negative for depression, anxiety, suicide ideation, homicidal ideation, and hallucinations. 05:22 MS/extremity: Positive for injury or acute deformity, laceration. Exam: 05:33 Constitutional: This is a well developed, well nourished patient who is awake, alert, rt and in no acute distress. Head/Face: Normocephalic, atraumatic. Eyes: Pupils equal round and reactive to light, extra-ocular motions intact. Lids and lashes normal. Conjunctiva and sclera are non-icteric and not injected. Cornea within normal limits. Periorbital areas with no swelling, redness, or edema. Chest/axilla: Normal chest wall appearance and motion. Nontender with no deformity. No lesions are appreciated. Cardiovascular: Regular rate and rhythm with a normal S1 and S2. No gallops, murmurs, or rubs. Normal PMI, no JVD. No pulse deficits. Respiratory: Lungs have equal breath sounds bilaterally, clear to auscultation and percussion. No rales, rhonchi or wheezes noted. No increased work of breathing, no retractions or nasal flaring. Abdomen/GI: Soft, non-tender, with normal bowel sounds. No distension or tympany. No guarding or rebound. No evidence of tenderness throughout. Back: No spinal tenderness. No costovertebral tenderness. Full range of motion. Skin: Warm, dry with normal turgor. Normal color with no rashes, no lesions, and no evidence of cellulitis. Neuro: Awake and alert, GCS 15, oriented to person, place, time, and situation. Cranial nerves II-XII grossly intact. Motor strength 5/5 in all extremities. Sensory grossly intact. Cerebellar exam normal. Normal gait. Psych: Awake, alert, with orientation to person, place and time. Behavior, mood, and affect are within normal limits. 05:33 Musculoskeletal/extremity: Laceration through the proximal third of the nail of the left first digit, mild bleeding, devitalized tissue noted at the nail bed.. Vital Signs: 02:50 BP 111 / 63; Pulse 102; Resp 17 S; Pulse Ox 100% on R/A; ha1 02:55 BP 111 / 63; Pulse 102; Resp 17; Pulse Ox 100% on R/A; Weight 72.57 kg; Height 5 ft. 10 kd3 in. (177.80 cm); 03:50 BP 137 / 67; Pulse 90; Resp 17 S; Pulse Ox 100% on R/A; ha1 05:07 Temp 97.9(O); bb 05:20 BP 160 / 92; Pulse 66; Resp 18 S; Temp 97.8(O); Pulse Ox 99% on R/A; as6 06:12 BP 160 / 92; Pulse 65; Resp 18 S; Pulse Ox 100% on R/A; as6 02:55 Body Mass Index 22.96 (72.57 kg, 177.80 cm) kd3 Laceration: 05:33 Wound Repair of 2cm ( 0.8in ) subcutaneous laceration to left hand and dorsal aspect of rt distal phalanx of left thumb. Distal neuro/vascular/tendon intact. Anesthesia: Digital block administered with 2 mls of 0.5% marcaine. Wound prep: Copious irrigation. Dressed with Wound was left primarily open, devitalized tissue was debrided, removing matrix from the nailbed.. MDM: 02:48 Patient medically screened. rt 05:33 Differential diagnosis: open fracture, laceration. Data reviewed: vital signs, nurses rt notes, radiologic studies. ED course: Patient presents to the ED with injury to the left thumb. Devitalized tissue was debrided. Good pain control was obtained with digital block. Patient is found to have a fracture of the distal phalanx. This is an open fracture, will transfer for hand surgery.. 06:13 Refusal of service: The patient/guardian displays adequate decision making capability rt and despite a detailed discussion of alternatives, benefits, risks, and consequences refuses: transfer to higher level of care. ED course: After being accepted to [facility], the patient stated that he strongly wishes to not be transferred. I discussed patient risk and benefits including loss of digit as well as function. Patient verbalized understanding, has decision-making capacity. Patient was informed that he may return anytime if he changes his mind.. 12 04:30 Order name: SARS RAPID; Complete Time: 05:21 mw2 04/27 03:04 Order name: XRAY Hand LEFT 3 View ha1 Administered Medications: 03:09 Drug: Bupivacaine (0.5 %) 30 ml {Note: administered by provider .} Volume: 10 ml; as6 Route: Infiltration; 06:13 Follow up: Response: No adverse reaction as6 05:20 Drug: Ancef (cefazolin) 2 grams Route: IVPB; Infused Over: 30 mins; Site: right as6 antecubital; 06:13 Follow up: Response: No adverse reaction; IV Status: Completed infusion; IV Intake: as6 100ml Disposition Summary: 04/27/22 06:12 Discharge Ordered Location: Home rt Problem: new(04/27/22 06:12) rt Symptoms: are unchanged(04/27/22 06:12) rt Condition: Fair(04/27/22 06:12) rt Diagnosis - Open fracture of distal phalanx of left first digit rt Followup: rt - With: Emergency Department - When: Immediately if you change your mind regarding transfer. You are leaving AGAINST MEDICAL ADVICE, strongly recommended that you be transferred for hand surgery - Reason: Discharge Instructions: - Discharge Summary Sheet rt - Finger Fracture, Adult rt Forms: - Medication Reconciliation Form rt - Thank You Letter rt - Antibiotic Education rt - Prescription Opioid Use rt Prescriptions: - Doxycycline Hyclate 100 mg Oral Tablet - take 1 tablet by ORAL route every 12 hours; 20 tablet; Refills: 0, Product rt Selection Permitted Signatures: Dispatcher [employer] Roman Sanchez RN RN as6 Cara Gale RN RN kd3 Savita Tony RN RN ha1 Derek Clemens MD MD rt Corrections: (The following items were deleted from the chart) 06:10 05:33 Fry rt rt 06:10 05:33 [facility] rt rt 06:10 05:33 Higher level of care rt rt 06:10 05:33 Stable rt rt 06:10 05:33 new rt rt 06:10 05:33 are unchanged rt rt 06:10 05:33 Open fracture of distal phalanx of left first digit rt rt
[2022-04-27 10:54] VITALS: BP 160/92; TEMP 97.8
[2022-04-27 10:55] VITALS: O2SAT 100
--- NOTE | 2022-04-27 19:58 | RAD REPORT ---
EXAM DESCRIPTION: ADDENDUM #1 There is an oblique mildly displaced and mildly comminuted fracture of the mid and distal portion of the distal first phalanx. There is soft tissue swelling of the first digit. Electronically signed by: Hugo Barillas MD 04/27/2022 6:52 AM FINISHER ACCORDION End of Addendum CLINICAL HISTORY: DEFORMITY COMPARISON: None. TECHNIQUE: XR HAND 3 OR MORE VIEWS 04/27/2022 3:04 AM FINISHER ACCORDION FINDINGS: There is an old fracture deformity of the fifth metacarpal. There are degenerative changes throughout the wrist into mild degree throughout the IP joints. Soft tissues are unremarkable. IMPRESSION: No acute osseous findings. Electronically signed by: Hugo Barillas MD 04/27/2022 5:00 AM FINISHER ACCORDION Due to temporary technical issues with the PACS/Fluency reporting system, reports are being signed by the in house radiologists without review as a courtesy to insure prompt reporting. The interpreting radiologist is fully responsible for the content of the report.
== END 2022-04-27 06:22 | disposition home or self-care (01) ==
LOC: ER 02:25
PROC: 0JQK0ZZ Repair Left Hand Subcutaneous Tissue and Fascia, Open Approach (ICD-10-PCS; principal; 2022-04-27)
DX: S62.522B Displaced fracture of distal phalanx of left thumb, initial encounter for open fracture (principal)
CPT/HCPCS: 36415; 87811; 96365; 99284; J0690